=== PATIENT | female | born 1955 | race African-American/Black ===

== ENCOUNTER 2019-11-17 14:18 | Inpatient (IN) | payer MEDICARE, BC ==
[~2019-11-17] VITALS: Ht 160 cm; Wt 74.6 kg
[2019-11-17] MEDS ORDERED: HEPARIN SODIUM (PORCINE) 5000 UNITS/ML 1ML VIAL IV ONE (15:15)
[2019-11-17 15:35] LABS: Basophils # (auto) 0 10 ^3/uL (0-0.2); Basophils % (auto) 0.1 % (0.0-2.0); Eosinophils # (auto) 0.1 10 ^3/uL (0-0.8); Eosinophils % (auto) 0.6 % (0.0-7.0); Hematocrit 44.4 % (36.0-46.0); Hemoglobin 14.6 g/dL (12.2-16.2); Lymphocytes # (auto) 1.3 10 ^3/uL (0.4-5.4); Lymphocytes % (auto) 11.1 % (10.0-50.0); Mean Corpuscular Hemoglobin 31.4 pg (28.0-32.0); Mean Corpuscular Volume 95.4 fL (80.0-100.0); Monocytes # (auto) 0.8 10 ^3/uL (0-1.3); Monocytes % (auto) 6.3 % (0.0-12.0); Neutrophils # (auto) 9.8 10 ^3/uL (1.6-8.6); Neutrophils % (auto) 81.9 % (37.0-80.0); Nucleated Red Blood Cells % 0.4 %; Platelet Count (auto) 141 10^3/uL (140-450); Red Blood Cells 4.66 10^6/uL (4.0-5.20); Red Cell Distribution Width 15.4 % (11.8-14.3)
[2019-11-17 15:54] LABS: Alanine Aminotransferase 24 U/L (13-56); Albumin 3.9 g/dL (3.4-5.0); Anion Gap 9 (5-15); Aspartate Aminotransferase 25 U/L (15-37); BUN/Creatinine Ratio 14.1; Blood Urea Nitrogen 13 mg/dL (7-18); Calcium 9.4 mg/dL (8.5-10.1); Carbon Dioxide 22 mmol/L (21-32); Chloride 104 mmol/L (98-107); GFR African American 79 mL/min; GFR Non-African American 65 mL/min; Glucose 124 mg/dL (74-106); Potassium 3.7 mmol/L (3.5-5.1); Sodium 135 mmol/L (136-145)
[2019-11-17 15:59] LABS: Alkaline Phosphatase 110 U/L (45-117); Bilirubin, Total 0.8 mg/dL (0.2-1.0); Total Protein 9.3 g/dL (6.4-8.2)
[2019-11-17 16:37] LABS: Urine Bacteria FEW /hpf (None Seen); Urine Blood Negative /uL (Negative); Urine Specific Gravity 1.004 (1.001-1.035); Urine WBC 6 /hpf (0 - 5)
[2019-11-17] MEDS ORDERED: cloNIDine HCL 0.1 MG TAB PO PRN (17:00)
[2019-11-17] MEDS ORDERED: DOCUSATE SOD 100 MG CAP PO PRN (17:15)
[2019-11-17] MEDS ORDERED: ONDANSETRON HCL 4 MG/2 ML VIAL IV PRN (17:15)
[2019-11-17] MEDS ORDERED: NITROGLYCERIN 0.4 MG SL TAB SL PRN (17:15)
[2019-11-17] MEDS ORDERED: MORPHINE SULF INJ 2 MG/ML SYRINGE 1ML IV PRN ×2 (17:15)
[2019-11-17] MEDS ORDERED: LORazepam 0.5 MG TAB PO PRN (17:15)
[2019-11-17] MEDS ORDERED: ALUM & MAG HYDROX-SIMETH LIQ(MAALOX) 30 ML PO PRN (17:15)
[2019-11-17] MEDS ORDERED: HYDROcodone-ACET 5/325MG TAB PO PRN (17:15)
[2019-11-17 17:26] LABS: Cholesterol 202 mg/dL (< 200)
[2019-11-17 17:28] LABS: HDL Cholesterol 49 mg/dL (40-59); LDL Cholesterol 128 mg/dL (< 100); Triglycerides 108 mg/dL (< 150)
[2019-11-17 17:34] LABS: INR 1.14 (0.9-1.15); Partial Thromboplastin Time 27.3 sec (23.64-32.05)
[2019-11-17 17:47] LABS: Alcohol, Urine < 3.0 mg/dL (0-5); Amphetamine Screen, Urine NEGATIVE (NEGATIVE); Barbiturate Scree,Urine NEGATIVE (NEGATIVE); Benzodiazephine Screen, Urine NEGATIVE (NEGATIVE); Cannabinoid Screen, Urine NEGATIVE (NEGATIVE); Cocaine Screen, Urine NEGATIVE (NEGATIVE); Opiate Scree,Urine NEGATIVE (NEGATIVE); Phencyclidine Screen, Urine NEGATIVE (NEGATIVE)
[2019-11-17 20:15] VITALS: BP 121/84
[2019-11-17] MEDS ORDERED: BENA5TAB5 PO (21:19)
[2019-11-17] MEDS ORDERED: CAR125T PO (21:19)
[2019-11-17] MEDS ORDERED: AMLO5TAB15 PO (21:19)
[2019-11-17] MEDS: CARVEDILOL 12.5 MG TAB PO SCH (21:39)
[2019-11-17] MEDS: ATORVASTATIN 20 MG TAB PO SCH (21:39)
[2019-11-17] MEDS: CLINDAMYCIN 600MG IV 50 ML IV SCH (21:40)
[2019-11-17] MEDS: ENOXAPARIN SOD 100 MG/1 ML SYRINGE SC SCH (21:40)
[2019-11-18] VITALS (45 sets, daily range): BP systolic 88–137; BP diastolic 37–86
[2019-11-18] MEDS: CLINDAMYCIN 600MG IV 50 ML IV SCH ×2 (05:29→13:31)
[2019-11-18 07:05] LABS: Basophils # (auto) 0 10 ^3/uL (0-0.2); Basophils % (auto) 0.2 % (0.0-2.0); Eosinophils # (auto) 0.2 10 ^3/uL (0-0.8); Hematocrit 38.1 % (36.0-46.0); Lymphocytes # (auto) 2.7 10 ^3/uL (0.4-5.4); Lymphocytes % (auto) 29.4 % (10.0-50.0); Mean Corpuscular Hemoglobin 32.3 pg (28.0-32.0); Mean Corpuscular Hgb Conc. 34.2 g/dL (32.0-36.0); Mean Corpuscular Volume 94.4 fL (80.0-100.0); Monocytes # (auto) 0.7 10 ^3/uL (0-1.3); Monocytes % (auto) 8.2 % (0.0-12.0); Neutrophils # (auto) 5.5 10 ^3/uL (1.6-8.6); Neutrophils % (auto) 60.2 % (37.0-80.0); Nucleated Red Blood Cells % 0.1 %; Platelet Count (auto) 142 10^3/uL (140-450); Red Blood Cells 4.03 10^6/uL (4.0-5.20); Red Cell Distribution Width 15.1 % (11.8-14.3); White Blood Cell 9.2 10^3/uL (4.4-10.8)
[2019-11-18 07:11] LABS: INR 1.17 (0.9-1.15); Partial Thromboplastin Time 34.2 sec (23.64-32.05)
[2019-11-18 07:17] LABS: Potassium 3.4 mmol/L (3.5-5.1)
[2019-11-18 07:26] LABS: Albumin 3.4 g/dL (3.4-5.0); BUN/Creatinine Ratio 15.7; Bilirubin, Total 0.9 mg/dL (0.2-1.0); Calcium 8.9 mg/dL (8.5-10.1); Magnesium 2.4 mg/dL (1.6-2.6); Phosphorus 4.2 mg/dL (2.5-4.90)
[2019-11-18] MEDS ORDERED: LISINOPRIL 20 MG TAB PO SCH (10:00)
[2019-11-18] MEDS ORDERED: NIFEdipine ER 30 MG TAB PO SCH (10:00)
[2019-11-18] MEDS ORDERED: FLUoxetine HCL 20 MG CAP PO SCH (10:00)
[2019-11-18] MEDS ORDERED: ASPirin 81 mg TAB PO SCH (10:00)
[2019-11-18] MEDS: VENLAFAXINE HCL 37.5mg XR cap PO SCH (10:44)
[2019-11-18] MEDS: CHOLECALCIFEROL (VITD3) 1,000IU=25mCg TAB PO SCH (10:46)
[2019-11-18] MEDS: PANTOPRAZOLE 40 MG TAB PO SCH (10:46)
[2019-11-18] MEDS: CARVEDILOL 12.5 MG TAB PO SCH ×2 (10:47→13:31)
[2019-11-18] MEDS: ENOXAPARIN SOD 100 MG/1 ML SYRINGE SC SCH (10:48)
[2019-11-18] MEDS ORDERED: OPTISON 3ml Vial for INJ IV ONE (13:44)
[2019-11-18] MEDS ORDERED: POTASSIUM CHL 20 Meq TABLET PO ONE (14:15)
[2019-11-18] MEDS ORDERED: IOHEXOL 350 MG/ML 100ML IJ ONE (14:17)
[2019-11-18] MEDS: SODIUM CHLORIDE 0.9% 1,000 ML IV SCH (14:42)
[2019-11-18] MEDS ORDERED: LORazepam 2MG/ML-1ML VIAL IV PRN (16:45)
[2019-11-18] MEDS: RIVAROXABAN 15 MG TAB PO SCH (22:02)
[2019-11-18] MEDS: ATORVASTATIN 20 MG TAB PO SCH (22:03)
[2019-11-19] VITALS (16 sets, daily range): BP systolic 78–158; BP diastolic 49–93
[2019-11-19] MEDS: SODIUM CHLORIDE 0.9% 1,000 ML IV SCH ×3 (00:15→20:19)
[2019-11-19 04:54] LABS: BUN/Creatinine Ratio 15.7; Calcium 8.8 mg/dL (8.5-10.1); Potassium 3.4 mmol/L (3.5-5.1)
[2019-11-19] MEDS ORDERED: POTASSIUM CHL 20 Meq TABLET PO ONE (06:15)
[2019-11-19] MEDS: CHOLECALCIFEROL (VITD3) 1,000IU=25mCg TAB PO SCH (09:44)
[2019-11-19] MEDS: PANTOPRAZOLE 40 MG TAB PO SCH (09:44)
[2019-11-19] MEDS: RIVAROXABAN 15 MG TAB PO SCH ×2 (09:45→21:42)
[2019-11-19] MEDS: VENLAFAXINE HCL 37.5mg XR cap PO SCH (09:47)
[2019-11-19] MEDS: ATORVASTATIN 20 MG TAB PO SCH (21:42)
[2019-11-20 05:05] VITALS: BP 151/93
[2019-11-20] MEDS: SODIUM CHLORIDE 0.9% 1,000 ML IV SCH ×2 (05:28→16:20)
[2019-11-20 09:00] VITALS: BP 149/77
[2019-11-20] MEDS: VENLAFAXINE HCL 37.5mg XR cap PO SCH (10:00)
[2019-11-20] MEDS: CHOLECALCIFEROL (VITD3) 1,000IU=25mCg TAB PO SCH (10:16)
[2019-11-20] MEDS: PANTOPRAZOLE 40 MG TAB PO SCH (10:16)
[2019-11-20] MEDS: RIVAROXABAN 15 MG TAB PO SCH ×2 (10:16→21:29)
[2019-11-20] MEDS ORDERED: ALPR0.25 PO (10:33)
[2019-11-20] MEDS ORDERED: ALPRAZolam 0.25 MG TAB PO PRN (11:00)
[2019-11-20 13:24] VITALS: BP 149/91
[2019-11-20 16:56] VITALS: BP 138/89
[2019-11-20] MEDS: ATORVASTATIN 20 MG TAB PO SCH (21:29)
[2019-11-20 21:51] VITALS: BP 148/79
[2019-11-21] MEDS: SODIUM CHLORIDE 0.9% 1,000 ML IV SCH ×3 (04:31→22:15)
[2019-11-21 04:53] VITALS: BP 160/97
[2019-11-21 09:38] VITALS: BP 145/100
[2019-11-21] MEDS: PANTOPRAZOLE 40 MG TAB PO SCH (09:53)
[2019-11-21] MEDS: RIVAROXABAN 15 MG TAB PO SCH ×2 (09:53→22:30)
[2019-11-21] MEDS: CHOLECALCIFEROL (VITD3) 1,000IU=25mCg TAB PO SCH (09:54)
[2019-11-21 13:00] VITALS: BP 142/91
[2019-11-21 18:00] VITALS: BP 138/98
[2019-11-21 21:52] VITALS: BP 159/100
[2019-11-21] MEDS: ATORVASTATIN 20 MG TAB PO SCH (22:00)
[2019-11-21 22:51] VITALS: BP 165/97
[2019-11-22 05:17] VITALS: BP 142/96
[2019-11-22] MEDS: SODIUM CHLORIDE 0.9% 1,000 ML IV SCH (08:15)
[2019-11-22 09:11] VITALS: BP 145/94
[2019-11-22] MEDS: CHOLECALCIFEROL (VITD3) 1,000IU=25mCg TAB PO SCH (11:11)
[2019-11-22] MEDS: PANTOPRAZOLE 40 MG TAB PO SCH (11:11)
[2019-11-22] MEDS: RIVAROXABAN 15 MG TAB PO SCH (11:12)
[2019-11-22 12:41] VITALS: BP 130/94
[2019-11-22 17:17] VITALS: BP 151/95
[2019-11-22 17:20] VITALS: BP 151/95
== END 2019-11-22 19:39 | disposition home or self-care (01) | DRG 299 ==
LOC: ER 14:18 → TELE 14:19 → TELE-WESTW 20:10 → ICU WEST 11-18 09:15 → TELE-WESTW 11-19 11:20
PROVIDERS: ADMIT Hospitalist; ATTEND Family Medicine
PROC: 0GBG3ZX Excision of Left Thyroid Gland Lobe, Percutaneous Approach, Diagnostic (ICD-10-PCS; principal; 2019-11-21)
DX: I82.402 Acute embolism and thrombosis of unspecified deep veins of left lower extremity (principal); I26.99 Other pulmonary embolism without acute cor pulmonale; J96.00 Acute respiratory failure, unspecified whether with hypoxia or hypercapnia; L03.116 Cellulitis of left lower limb; E66.01 Morbid (severe) obesity due to excess calories; E78.5 Hyperlipidemia, unspecified; E04.1 Nontoxic single thyroid nodule; E87.6 Hypokalemia; E78.00 Pure hypercholesterolemia, unspecified; F32.9 Major depressive disorder, single episode, unspecified; F41.1 Generalized anxiety disorder; Z79.899 Other long term (current) drug therapy; Z82.49 Family history of ischemic heart disease and other diseases of the circulatory system; Z83.3 Family history of diabetes mellitus; Z80.8 Family history of malignant neoplasm of other organs or systems; E55.9 Vitamin D deficiency, unspecified; E86.1 Hypovolemia; F17.200 Nicotine dependence, unspecified, uncomplicated; I67.2 Cerebral atherosclerosis; M47.812 Spondylosis without myelopathy or radiculopathy, cervical region; Z79.01 Long term (current) use of anticoagulants; M77.9 Enthesopathy, unspecified; Z82.3 Family history of stroke
CPT/HCPCS: 10022; 36415; 70450; 70551; 71046; 71275; 72125; 76536; 76942; 80048; 80053; 80061; 80307; 81001; 82962; 83036; 83735; 84100; 84443; 84484; 85025; 85379; 85610; 85730; 87040; 87081; 88172; 93306; 93886; 95819; 97116; 97163; 97530; 99291; G0378; J3490; Q9956

== ENCOUNTER → 2020-03-15 | Outpatient (CLI) | payer MEDICARE, BC ==
[~2020-03-15] MED LIST: ALPR0.25 PO; AMLO5TAB15 PO; BENA5TAB5 PO; CAR125T PO
== END | disposition home or self-care (01) ==
LOC: XYW 08:39
PROVIDERS: ATTEND Internal Medicine
DX: I31.3 Pericardial effusion (noninflammatory) (principal); Z86.711 Personal history of pulmonary embolism
CPT/HCPCS: 93306

== ENCOUNTER → 2020-05-21 | Outpatient (CLI) | payer MEDICARE, BC ==
[~2020-05-21] MED LIST changes: +AMLO10TA13 PO; +BENA40TA83 PO; +CHOL20007 PO
== END | disposition home or self-care (01) ==
LOC: RT 08:46
PROVIDERS: ATTEND Internal Medicine Pulmonary Disease
DX: I26.99 Other pulmonary embolism without acute cor pulmonale (principal)
CPT/HCPCS: 94060; 94727; 94729

== ENCOUNTER 2020-05-31 10:26 | Inpatient (IN) | payer MEDICARE, BC ==
[~2020-05-31] VITALS: Ht 160 cm; Wt 74.3 kg
[~2020-05-31 10:26] MED LIST changes: -AMLO10TA13 PO; -BENA40TA83 PO; -CHOL20007 PO
[2020-05-31] MEDS ORDERED: SODIUM CHLORIDE 0.9% 1,000 ML IV ONE (11:45)
[2020-05-31 11:47] LABS: Basophils # (auto) 0 10 ^3/uL (0-0.2); Basophils % (auto) 0.3 % (0.0-2.0); Eosinophils # (auto) 0 10 ^3/uL (0-0.8); Hematocrit 41.8 % (36.0-46.0); Lymphocytes # (auto) 0.8 10 ^3/uL (0.4-5.4); Lymphocytes % (auto) 15.4 % (10.0-50.0); Mean Corpuscular Hemoglobin 31.6 pg (28.0-32.0); Mean Corpuscular Hgb Conc. 33.5 g/dL (32.0-36.0); Mean Corpuscular Volume 94.5 fL (80.0-100.0); Monocytes # (auto) 0.5 10 ^3/uL (0-1.3); Monocytes % (auto) 8.8 % (0.0-12.0); Neutrophils # (auto) 4.1 10 ^3/uL (1.6-8.6); Neutrophils % (auto) 75.5 % (37.0-80.0); Nucleated Red Blood Cells % 0.1 %; Platelet Count (auto) 175 10^3/uL (140-450); Red Blood Cells 4.42 10^6/uL (4.0-5.20); Red Cell Distribution Width 14.8 % (11.8-14.3); White Blood Cell 5.4 10^3/uL (4.4-10.8)
[2020-05-31 12:11] LABS: Albumin 3.5 g/dL (3.4-5.0); Calcium 8.7 mg/dL (8.5-10.1); Magnesium 2.5 mg/dL (1.6-2.6); Potassium 3.4 mmol/L (3.5-5.1)
[2020-05-31 12:17] LABS: BUN/Creatinine Ratio 11.9; Bilirubin, Total 0.4 mg/dL (0.2-1.0); Total Protein 8.6 g/dL (6.4-8.2)
[2020-05-31 12:25] LABS: INR 1.1 (0.9-1.15); Partial Thromboplastin Time 28.9 sec (23.0-31.2)
[2020-05-31] MEDS ORDERED: NITROGLYCERIN 0.4 MG SL TAB SL PRN (16:30)
[2020-05-31] MEDS ORDERED: MORPHINE SULF INJ 2 MG/ML SYRINGE 1ML IV PRN ×2 (16:30)
[2020-05-31] MEDS ORDERED: HYDROcodone-ACET 5/325MG TAB PO PRN (16:30)
[2020-05-31] MEDS ORDERED: ONDANSETRON HCL 4 MG/2 ML VIAL IV PRN (16:30)
[2020-05-31] MEDS ORDERED: D5W/SOD CHL 0.45%/KCL 20MEQ 1,000 ML IV ONE (16:30)
--- NOTE | 2020-05-31 17:10 | NUR ---
RECEIVED REPORT FROM LONNY HARRIS.
[2020-05-31 17:40] VITALS: BP 124/73
--- NOTE | 2020-05-31 17:40 | NUR ---
Telemetry admit from EDELMIRA MOLINA admitted to Telemetry unit after SBAR received. Patient oriented to SHEN WU RN primary RN, unit, room, bed, and unit policies regarding patient care and visiting hours. Patient now on continuous telemetry monitoring, tele box # [id number] and telemetry reading on arrival to unit is SINUS RHYTHM. Patient placed on bedside oxygen, weighed by bedscale and encouraged to call if they need something. All questions and concerns addressed, patient verbalized understanding.
[2020-05-31 17:54] VITALS: BP 124/73
[2020-05-31] MEDS ORDERED: BENA40TA83 PO (18:11)
[2020-05-31] MEDS ORDERED: AMLO10TA13 PO (18:11)
[2020-05-31] MEDS ORDERED: CHOL20007 PO (18:12)
--- NOTE | 2020-05-31 19:18 | NUR ---
Opening Shift Note Assumed care of patient, awake, alert and oriented x4. Patient on 2L of oxygen via NC with even and unlabored respirations, no S/S of distress/SOB or pain. Patient able to turn in bed independently, bed in lowest locked position, side rails up x2, and call light within reach. Instructed on POC and to call for assist PRN, will continue to monitor for changes Q1hr and PRN.
[2020-05-31] MEDS: ACETAMINOPHEN 500 MG TAB PO PRN (20:56)
[2020-05-31 21:34] LABS: Magnesium 2.4 mg/dL (1.6-2.6)
[2020-05-31 21:38] VITALS: BP 122/62
[2020-05-31 21:42] LABS: CRP High Sensitivity 3.21 mg/dL (< 0.3)
[2020-05-31] MEDS: DOXYCYCLINE 100 MG TAB/CAP PO SCH (21:57)
[2020-05-31] MEDS: CARVEDILOL 12.5 MG TAB PO SCH (21:57)
[2020-05-31] MEDS ORDERED: ALBUTEROL SULF HFA 90MCG INH 200DOSE IN SCH ×2 (22:00)
[2020-05-31] MEDS: BUDESONIDE (INHALATION) 180 MCG IH IN SCH (22:07)
[2020-06-01 02:19] VITALS: BP 122/62
[2020-06-01 04:55] VITALS: BP 111/62
[2020-06-01 07:03] LABS: Basophils # (auto) 0 10 ^3/uL (0-0.2); Basophils % (auto) 0.3 % (0.0-2.0); Eosinophils # (auto) 0 10 ^3/uL (0-0.8); Hematocrit 39.8 % (36.0-46.0); Hemoglobin 13.7 g/dL (12.2-16.2); Lymphocytes # (auto) 1.3 10 ^3/uL (0.4-5.4); Lymphocytes % (auto) 27.7 % (10.0-50.0); Mean Corpuscular Hemoglobin 32.1 pg (28.0-32.0); Mean Corpuscular Hgb Conc. 34.3 g/dL (32.0-36.0); Mean Corpuscular Volume 93.7 fL (80.0-100.0); Monocytes # (auto) 0.6 10 ^3/uL (0-1.3); Monocytes % (auto) 12.5 % (0.0-12.0); Neutrophils # (auto) 2.7 10 ^3/uL (1.6-8.6); Neutrophils % (auto) 59.5 % (37.0-80.0); Nucleated Red Blood Cells % 0.2 %; Platelet Count (auto) 153 10^3/uL (140-450); Red Blood Cells 4.25 10^6/uL (4.0-5.20); Red Cell Distribution Width 15.1 % (11.8-14.3); White Blood Cell 4.6 10^3/uL (4.4-10.8)
[2020-06-01] MEDS: BUDESONIDE (INHALATION) 180 MCG IH IN SCH ×2 (07:20→22:53)
[2020-06-01 07:25] LABS: Calcium 8.3 mg/dL (8.5-10.1); Potassium 3.4 mmol/L (3.5-5.1)
[2020-06-01 07:28] LABS: BUN/Creatinine Ratio 10.6
[2020-06-01 07:30] LABS: Bilirubin, Total 0.4 mg/dL (0.2-1.0); Total Protein 7.4 g/dL (6.4-8.2)
--- NOTE | 2020-06-01 07:30 | NUR ---
Opening Shift Note RECEIVED REPORT FROM NOC RN. Assumed care of patient, awake and alert. PATIENT ON OXYGEN AT 2 LPM VIA NASAL CANNULA WITH no S/S of distress/SOB or pain. BED IN LOWEST, LOCKED POSITION WITH SIDERAILS UP x2 AND CALL LIGHT WITHIN REACH. Instructed on POC and to call for assist PRN, will continue to monitor for changes Q1hr and PRN.
[2020-06-01 09:00] VITALS: BP 121/67
[2020-06-01] MEDS: ZINC SULFATE 220mg CAP or TAB PO SCH (10:15)
[2020-06-01] MEDS: CARVEDILOL 12.5 MG TAB PO SCH ×2 (10:16→22:08)
[2020-06-01] MEDS: FAMOTIDINE 20 MG TAB PO SCH (10:16)
[2020-06-01] MEDS: DOXYCYCLINE 100 MG TAB/CAP PO SCH ×2 (10:17→22:07)
[2020-06-01] MEDS: CHOLECALCIFEROL (VITD3) 2,000 UNIT CAP PO SCH (10:18)
[2020-06-01] MEDS: ENOXAPARIN SOD 40 MG/0.4 ML SYRINGE SC SCH (10:18)
[2020-06-01] MEDS: ASCORBIC ACID 1,000 MG TAB PO SCH (10:18)
--- NOTE | 2020-06-01 12:10 | NUR ---
COOLING MEASURES INITIATED DUE TO PATIENT'S TEMPERATURE.
[2020-06-01 13:00] VITALS: BP 103/61
[2020-06-01] MEDS ORDERED: guaiFENesin-DM 100/10mg/5ml SYR PO PRN (13:15)
[2020-06-01] MEDS ORDERED: POTASSIUM CHL 20 Meq TABLET PO ONE (13:15)
[2020-06-01] MEDS ORDERED: DexAMETHasone 4 MG TAB PO ONE (13:15)
[2020-06-01] MEDS ORDERED: FUROSEMIDE 40 MG TAB PO ONE (13:15)
[2020-06-01] MEDS ORDERED: REMDESIVIR PER PHARMACY IV SCH (14:45)
[2020-06-01] MEDS: ACETAMINOPHEN 500 MG TAB PO PRN (15:47)
--- NOTE | 2020-06-01 15:50 | NUR ---
TYLENOL ADMINISTERED FOR PATIENT'S TEMPERATURE.
[2020-06-01 16:40] VITALS: BP 110/65
[2020-06-01] MEDS ORDERED: REMDESIVIR 200 MG in NS 210ml LOADING DOSE ADULT IV ONE (17:00)
--- NOTE | 2020-06-01 17:13 | NUR ---
ADDITIONAL COOLING MEASURES CONTINUED FOR ELEVATED TEMPERATURE.
--- NOTE | 2020-06-01 19:18 | NUR ---
Opening Shift Note Assumed care of patient, awake, alert and oriented x4, on 2L of oxygen via NC with even and unlabored respirations, no S/S of distress/SOB or pain. Patient able to turn in bed independently, bed in lowest locked position, side rails up x2, and call light within reach. Instructed on POC and to call for assist PRN, will continue to monitor for changes Q1hr and PRN.
[2020-06-01 22:05] VITALS: BP 110/64
[2020-06-02] VITALS (7 sets, daily range): BP systolic 97–124; BP diastolic 61–70
[2020-06-02] MEDS: BUDESONIDE (INHALATION) 180 MCG IH IN SCH ×2 (06:27→21:12)
[2020-06-02 07:33] LABS: Basophils # (auto) 0 10 ^3/uL (0-0.2); Basophils % (auto) 0.2 % (0.0-2.0); Eosinophils # (auto) 0 10 ^3/uL (0-0.8); Hemoglobin 13.3 g/dL (12.2-16.2); Lymphocytes # (auto) 0.7 10 ^3/uL (0.4-5.4); Lymphocytes % (auto) 14.6 % (10.0-50.0); Mean Corpuscular Hemoglobin 31.5 pg (28.0-32.0); Mean Corpuscular Hgb Conc. 33.2 g/dL (32.0-36.0); Mean Corpuscular Volume 94.9 fL (80.0-100.0); Monocytes # (auto) 0.4 10 ^3/uL (0-1.3); Monocytes % (auto) 8.1 % (0.0-12.0); Neutrophils # (auto) 3.9 10 ^3/uL (1.6-8.6); Neutrophils % (auto) 77.1 % (37.0-80.0); Nucleated Red Blood Cells % 0.1 %; Platelet Count (auto) 152 10^3/uL (140-450); Red Blood Cells 4.22 10^6/uL (4.0-5.20); Red Cell Distribution Width 14.9 % (11.8-14.3); White Blood Cell 5.1 10^3/uL (4.4-10.8)
--- NOTE | 2020-06-02 07:40 | NUR ---
Opening Shift Note Assumed care of patient, awake and alert. Respirations are even and non labored on 2LNC. No S/S of distress/SOB or pain. Bed is in the lowest and locked position with side rails up x 2 and call light within reach. Instructed on POC and to call for assist PRN, will continue to monitor for changes Q1hr and PRN.
[2020-06-02 07:53] LABS: Potassium 3.7 mmol/L (3.5-5.1)
[2020-06-02 08:04] LABS: BUN/Creatinine Ratio 17.9; Bilirubin, Total 0.3 mg/dL (0.2-1.0); Calcium 8.7 mg/dL (8.5-10.1); Total Protein 7.5 g/dL (6.4-8.2)
[2020-06-02] MEDS: ZINC SULFATE 220mg CAP or TAB PO SCH (11:08)
[2020-06-02] MEDS: CARVEDILOL 12.5 MG TAB PO SCH ×2 (11:09→21:03)
[2020-06-02] MEDS: DexAMETHasone 4 MG TAB PO SCH (11:09)
[2020-06-02] MEDS: POTASSIUM CHL 20 Meq TABLET PO SCH (11:09)
[2020-06-02] MEDS: FAMOTIDINE 20 MG TAB PO SCH (11:10)
[2020-06-02] MEDS: CHOLECALCIFEROL (VITD3) 2,000 UNIT CAP PO SCH (11:10)
[2020-06-02] MEDS: ASCORBIC ACID 1,000 MG TAB PO SCH (11:10)
[2020-06-02] MEDS: FUROSEMIDE 40 MG TAB PO SCH (11:10)
[2020-06-02] MEDS: DOXYCYCLINE 100 MG TAB/CAP PO SCH ×2 (11:10→21:02)
[2020-06-02] MEDS: ENOXAPARIN SOD 40 MG/0.4 ML SYRINGE SC SCH ×2 (11:11→21:02)
[2020-06-02 15:27] LABS: Urine WBC None Seen /hpf (0 - 5)
[2020-06-02 15:47] LABS: Urine Bacteria FEW /hpf (None Seen); Urine Blood TRACE /uL (Negative); Urine Specific Gravity 1.005 (1.001-1.035)
[2020-06-02] MEDS: REMDESIVIR 100mg in NS 230ml DAILYx4DAYS (NO VENT) IV SCH (17:24)
--- NOTE | 2020-06-02 19:24 | NUR ---
Opening Shift Note Assumed care of patient, awake and alert x 4. No S/S of distress/SOB or pain. Bed is in lowest position and locked. Call light within reach. Board updated. Tele box number matches monitor and leads are in correct placement. Instructed on POC and to call for assist PRN, will continue to monitor for changes Q1hr and PRN.
[2020-06-02] MEDS: ACETAMINOPHEN 500 MG TAB PO PRN (21:03)
[2020-06-03] VITALS (9 sets, daily range): BP systolic 98–146; BP diastolic 63–79
[2020-06-03] MEDS: BUDESONIDE (INHALATION) 180 MCG IH IN SCH ×2 (06:22→21:44)
[2020-06-03 06:43] LABS: Calcium 9.3 mg/dL (8.5-10.1); Potassium 3.6 mmol/L (3.5-5.1)
[2020-06-03 06:45] LABS: BUN/Creatinine Ratio 19.2
--- NOTE | 2020-06-03 10:48 | NUR ---
Nutrition Assessment Est energy needs 4791-2508 kcal (20-23 kcal/kg BW 75.4kg) est protein needs 57-69g (1-1.3g/kg IBW 57kg) Will monitor and reassess prn. Addendum: 06/03/20 at [address] Amended: Links added.
[2020-06-03] MEDS: ZINC SULFATE 220mg CAP or TAB PO SCH (12:00)
[2020-06-03] MEDS: POTASSIUM CHL 20 Meq TABLET PO SCH (12:01)
[2020-06-03] MEDS: CARVEDILOL 12.5 MG TAB PO SCH ×2 (12:01→22:20)
[2020-06-03] MEDS: DexAMETHasone 4 MG TAB PO SCH (12:01)
[2020-06-03] MEDS: FAMOTIDINE 20 MG TAB PO SCH (12:02)
[2020-06-03] MEDS: DOXYCYCLINE 100 MG TAB/CAP PO SCH ×2 (12:02→22:19)
[2020-06-03] MEDS: FUROSEMIDE 40 MG TAB PO SCH (12:02)
[2020-06-03] MEDS: CHOLECALCIFEROL (VITD3) 2,000 UNIT CAP PO SCH (12:02)
[2020-06-03] MEDS: ENOXAPARIN SOD 40 MG/0.4 ML SYRINGE SC SCH ×2 (12:37→22:20)
[2020-06-03] MEDS: ASCORBIC ACID 1,000 MG TAB PO SCH (12:37)
[2020-06-03] MEDS: REMDESIVIR 100mg in NS 230ml DAILYx4DAYS (NO VENT) IV SCH (17:08)
--- NOTE | 2020-06-03 19:15 | NUR ---
Opening Shift Note Assumed care of patient, awake and alert. No S/S of distress/SOB or pain. Instructed on POC and to callf or assist PRN, will continue to monitor for changes Q1hr and PRN.
--- NOTE | 2020-06-03 19:30 | NUR ---
Post Remdesivir t-98.0, BP- 105/61, HR- 79, Ox- 95%, R-20, Pain- O
[2020-06-03] MEDS ORDERED: SODIUM CHLORIDE 0.9% 1,000 ML IV SCH (22:30)
[2020-06-04 05:00] VITALS: BP 105/62
[2020-06-04] MEDS: BUDESONIDE (INHALATION) 180 MCG IH IN SCH ×2 (06:21→22:00)
--- NOTE | 2020-06-04 07:20 | NUR ---
Opening Shift Note Assumed care of patient, awake and alert. Respirations are even and non labored on 2LNC. No S/S of distress/SOB but back pain reported, ice packs given. Bed is in the lowest and locked position with side rails up x 2 and call light within reach. Instructed on POC and to call for assist PRN, will continue to monitor for changes Q1hr and PRN.
[2020-06-04 09:00] VITALS: BP 121/71
[2020-06-04] MEDS: ZINC SULFATE 220mg CAP or TAB PO SCH (09:23)
[2020-06-04] MEDS: CARVEDILOL 12.5 MG TAB PO SCH ×2 (09:24→21:24)
[2020-06-04] MEDS: DexAMETHasone 4 MG TAB PO SCH (09:24)
[2020-06-04] MEDS: POTASSIUM CHL 20 Meq TABLET PO SCH (09:24)
[2020-06-04] MEDS: FUROSEMIDE 40 MG TAB PO SCH (09:25)
[2020-06-04] MEDS: FAMOTIDINE 20 MG TAB PO SCH (09:25)
[2020-06-04] MEDS: ASCORBIC ACID 1,000 MG TAB PO SCH (09:26)
[2020-06-04] MEDS: CHOLECALCIFEROL (VITD3) 2,000 UNIT CAP PO SCH (09:26)
[2020-06-04] MEDS: DOXYCYCLINE 100 MG TAB/CAP PO SCH ×2 (09:26→21:24)
[2020-06-04] MEDS: ENOXAPARIN SOD 40 MG/0.4 ML SYRINGE SC SCH ×2 (09:26→21:24)
[2020-06-04 13:00] VITALS: BP 116/69
[2020-06-04 17:00] VITALS: BP 115/66
--- NOTE | 2020-06-04 17:52 | NUR ---
IV removal IV DC'd with sterile technique, catheter fully intact. Pressure dressing applied to site. Patient tolerated procedure well. Discharged with aftercare instructions per MD.
--- NOTE | 2020-06-04 18:07 | NUR ---
IV insertion IV access obtained, via clean sterile technique by inserting 22 gauge catheter at the left wrist after 1 attempt. IV secured properly. No trauma to site. Patient tolerated well.
[2020-06-04] MEDS: REMDESIVIR 100mg in NS 230ml DAILYx4DAYS (NO VENT) IV SCH (18:48)
[2020-06-04 20:00] VITALS: BP 143/83
[2020-06-04 22:00] VITALS: BP 143/83
[2020-06-05 05:00] VITALS: BP 120/73
[2020-06-05 06:24] LABS: Basophils # (auto) 0 10 ^3/uL (0-0.2); Basophils % (auto) 0.6 % (0.0-2.0); Eosinophils # (auto) 0 10 ^3/uL (0-0.8); Hematocrit 40.2 % (36.0-46.0); Hemoglobin 13.3 g/dL (12.2-16.2); Lymphocytes # (auto) 0.8 10 ^3/uL (0.4-5.4); Lymphocytes % (auto) 26.6 % (10.0-50.0); Mean Corpuscular Hemoglobin 31.1 pg (28.0-32.0); Mean Corpuscular Hgb Conc. 33.2 g/dL (32.0-36.0); Mean Corpuscular Volume 93.8 fL (80.0-100.0); Monocytes # (auto) 0.4 10 ^3/uL (0-1.3); Monocytes % (auto) 13.3 % (0.0-12.0); Neutrophils # (auto) 1.8 10 ^3/uL (1.6-8.6); Neutrophils % (auto) 59.5 % (37.0-80.0); Nucleated Red Blood Cells % 0.4 %; Platelet Count (auto) 197 10^3/uL (140-450); Red Blood Cells 4.29 10^6/uL (4.0-5.20); Red Cell Distribution Width 15.2 % (11.8-14.3); White Blood Cell 3.1 10^3/uL (4.4-10.8)
[2020-06-05 06:34] LABS: Potassium 3.8 mmol/L (3.5-5.1)
[2020-06-05 06:49] LABS: Albumin 2.8 g/dL (3.4-5.0); Bilirubin, Total 0.4 mg/dL (0.2-1.0); Calcium 8.7 mg/dL (8.5-10.1); Total Protein 7.2 g/dL (6.4-8.2)
--- NOTE | 2020-06-05 07:15 | NUR ---
ASSUMED CARE OF PATIENT ALERT AND AWAKE. RESPIRATIONS EVEN AND UNLABORED. UPDATED PATIENT ON PLAN OF CARE AND TO CALL FOR ASSISTANCE IF NEEDED. BED LOCKED IN LOWEST POSITION, HOB ELEVATED AT LEAST 30 DEGREES AND CALL LIGHT IS WITHIN REACH. WILL CONTINUE TO MONITOR.
[2020-06-05] MEDS: BUDESONIDE (INHALATION) 180 MCG IH IN SCH (07:27)
[2020-06-05 09:28] VITALS: BP 131/75
[2020-06-05] MEDS: ZINC SULFATE 220mg CAP or TAB PO SCH (10:04)
[2020-06-05] MEDS: CARVEDILOL 12.5 MG TAB PO SCH (10:05)
[2020-06-05] MEDS: DexAMETHasone 4 MG TAB PO SCH (10:05)
[2020-06-05] MEDS: FAMOTIDINE 20 MG TAB PO SCH (10:06)
[2020-06-05] MEDS: POTASSIUM CHL 20 Meq TABLET PO SCH (10:06)
[2020-06-05] MEDS: DOXYCYCLINE 100 MG TAB/CAP PO SCH (10:06)
[2020-06-05] MEDS: FUROSEMIDE 40 MG TAB PO SCH (10:06)
[2020-06-05] MEDS: ASCORBIC ACID 1,000 MG TAB PO SCH (10:06)
[2020-06-05] MEDS: CHOLECALCIFEROL (VITD3) 2,000 UNIT CAP PO SCH (10:07)
[2020-06-05] MEDS: ENOXAPARIN SOD 40 MG/0.4 ML SYRINGE SC SCH (10:07)
[2020-06-05] MEDS ORDERED: DOX100T PO (10:23)
[2020-06-05] MEDS ORDERED: ASCO500T11 PO (10:23)
[2020-06-05] MEDS ORDERED: CHOL1CAP47 PO (10:23)
[2020-06-05] MEDS ORDERED: ZINC220T6 PO (10:23)
[2020-06-05] MEDS ORDERED: ASPI81CH43 PO (10:23)
[2020-06-05] MEDS ORDERED: DEX4T PO (10:23)
[2020-06-05] MEDS ORDERED: FAMO-12 PO (10:23)
[2020-06-05] MEDS ORDERED: POTA1TAB61 PO (12:43)
[2020-06-05] MEDS ORDERED: FURO20TA3 PO (12:43)
[2020-06-05 12:58] VITALS: BP 123/70
[2020-06-05 16:39] VITALS: BP 128/78
[2020-06-05] MEDS: REMDESIVIR 100mg in NS 230ml DAILYx4DAYS (NO VENT) IV SCH (17:34)
--- NOTE | 2020-06-05 18:38 | NUR ---
REMDEZEVIR PRE INFUSION VITALS- BP 118/69, HR 66, RESPIRATIONS 18, O2 93 AND TEMP 98.1 15 MINUTES AFTER START OF INFUSION VITALS- BP 122/73, HR 64, RESPIRATIONS 18, O2 94 AND TEMP 98.1 POST INFUSION VITALS INFUSION VITALS- BP 124/73, HR 66, RESPIRATIONS 18, O2 94 AND TEMP 98.1
--- NOTE | 2020-06-05 19:19 | NUR ---
ENDORSED CARE TO NOC SHIFT RN
--- NOTE | 2020-06-05 19:35 | NUR ---
Opening Shift Note Assumed care of patient, awake and alert. No S/S of distress/SOB or pain. Instructed on POC and to call for assist PRN, will continue to monitor for changes Q1hr and PRN. Patient made aware of discharge. Patient waiting for ride.
--- NOTE | 2020-06-05 20:20 | NUR ---
Discharge Patient discharge, IV and telebox removed. Patient wheeled chair down to main entrance. No status change.
== END 2020-06-05 20:20 | disposition home or self-care (01) | DRG 871 ==
LOC: ER 10:26 → TELE 10:27 → TELE-CENTR 17:41
PROVIDERS: ADMIT Nurse Practitioner Acute Care; ATTEND Internal Medicine
PROC: XW033E5 Introduction of Remdesivir Anti-infective into Peripheral Vein, Percutaneous Approach, New Technology Group 5 (ICD-10-PCS; 2020-06-01)
PROC: XW13325 Transfusion of Convalescent Plasma (Nonautologous) into Peripheral Vein, Percutaneous Approach, New Technology Group 5 (ICD-10-PCS; principal; 2020-06-03)
DX: A41.89 Other specified sepsis (principal); U07.1 COVID-19; J12.89 Other viral pneumonia; N17.0 Acute kidney failure with tubular necrosis; J96.01 Acute respiratory failure with hypoxia; E44.1 Mild protein-calorie malnutrition; J98.11 Atelectasis; K52.9 Noninfective gastroenteritis and colitis, unspecified; F32.9 Major depressive disorder, single episode, unspecified; F41.9 Anxiety disorder, unspecified; I10 Essential (primary) hypertension; E87.6 Hypokalemia; E86.0 Dehydration; Z79.899 Other long term (current) drug therapy; Z82.49 Family history of ischemic heart disease and other diseases of the circulatory system; Z83.3 Family history of diabetes mellitus; Z86.711 Personal history of pulmonary embolism; Z86.718 Personal history of other venous thrombosis and embolism; Z98.891 History of uterine scar from previous surgery; Z80.9 Family history of malignant neoplasm, unspecified; Z79.82 Long term (current) use of aspirin
CPT/HCPCS: 36415; 36600; 71045; 80048; 80053; 81001; 82728; 82805; 83605; 83615; 83735; 83880; 84443; 84484; 85025; 85379; 85610; 85730; 86141; 86850; 86900; 86901; 87040; 87426; 87804; 93970; 94640; G0378

== ENCOUNTER → 2021-07-29 | Outpatient (CLI) | payer MEDICARE, BC, OTHER ==
[~2021-07-29] MED LIST changes: +AMLO-496 PO; -AMLO5TAB15 PO; +ASCO500T11 PO; +ASPI81CH43 PO; +BENA40TA83 PO; -BENA5TAB5 PO; +CHOL1CAP47 PO; +DEX4T PO; +DOX100T PO; +FAMO-12 PO; +FURO20TA3 PO; +POTA1TAB61 PO; +ZINC220T6 PO
== END | disposition home or self-care (01) ==
LOC: XYW 07:59
PROVIDERS: ATTEND Internal Medicine
DX: I07.1 Rheumatic tricuspid insufficiency (principal); I27.20 Pulmonary hypertension, unspecified; I05.0 Rheumatic mitral stenosis; I35.0 Nonrheumatic aortic (valve) stenosis
CPT/HCPCS: 93306

== ENCOUNTER → 2022-10-23 | Outpatient (CLI) | payer MEDICARE, BC ==
[2022-10-23 13:18] LABS: Albumin 3.7 g/dL (3.4-5.0); Calcium 9.7 mg/dL (8.5-10.1); Potassium 3.5 mmol/L (3.5-5.1)
[2022-10-23 13:24] LABS: BUN/Creatinine Ratio 11.1 (10.0-20.0); Bilirubin, Total 0.6 mg/dL (0.2-1.0); Total Protein 8.3 g/dL (6.4-8.2)
== END | disposition home or self-care (01) ==
LOC: LAB 12:42
PROVIDERS: ATTEND Internal Medicine
DX: I10 Essential (primary) hypertension (principal)
CPT/HCPCS: 36415; 80053

== ENCOUNTER → 2023-08-17 | Outpatient (CLI) | payer MEDICARE, BC ==
[~2023-08-17] MED LIST changes: -AMLO-496 PO; +AMLO1TAB23 PO
== END | disposition home or self-care (01) ==
LOC: XYW 10:21
PROVIDERS: ATTEND Internal Medicine
DX: I08.1 Rheumatic disorders of both mitral and tricuspid valves (principal); I11.9 Hypertensive heart disease without heart failure
CPT/HCPCS: 93306